=== PATIENT | female | born 1950 | race Caucasian/White ===

== ENCOUNTER 2020-01-02 09:58 | Emergency (ER) | payer MEDICARE, OTHER, SELFPAY ==
[2020-01-02] VITALS (16 sets, daily range): BP systolic 142–223; BP diastolic 63–103; PULSE 45–58; RESP 14–28; TEMP 36.2; O2SAT 94–99; BMI 27.1
--- NOTE | 2020-01-02 10:14 | ED.GENADULT ---
HPI - General Adult General Chief complaint: Extremity Injury, Upper Stated complaint: fell jammed lt shoulder/ hand numb Time Seen by Provider: 01/02/20 10:02 Source: patient Mode of arrival: Ambulatory Limitations: no limitations History of Present Illness HPI narrative: 69-year-old female here for evaluation of left shoulder/upper arm injury. Patient states that she was on a short step stool dusting when she lost her balance and fell landing on her left shoulder. She thinks that she landed on her shoulder and not an outstretched arm. Has been unable to move her shoulder since that time. She states she did not hit her head. No neck pain. Was able to ambulate afterwards. Reports no other injuries from the event. Does state that she is having tingling in her left hand reports no elbow or wrist pain. Related Data Home Medications Medication Instructions Recorded Confirmed omeprazole magnesium [Prilosec OTC] 20 mg PO #0 02/08/17 sertraline 50 mg PO QDAY #0 02/08/17 Previous Rx's Medication Instructions Recorded nitrofurantoin monohyd/m-cryst 100 mg PO BIDCC #10 cap 02/08/17 [Macrobid] hydrocodone-acetaminophen [[place]] 1 tab PO Q4-6H PRN #14 tab 01/02/20 Allergies Allergy/AdvReac Type Severity Reaction Status Date / Time hydromorphone [From Dilaudid] Allergy ITCHING Verified 01/02/20 10:11 Review of Systems Constitutional Constitutional: Denies fever(s), Denies frequent falls and Denies headache(s) ENT Ears, Nose, Mouth, and Throat: Denies headache(s) Cardiovascular Cardiovascular: Denies chest pain and Denies dyspnea Respiratory Respiratory: Denies dyspnea Gastrointestinal Gastrointestinal: Denies abdominal pain Musculoskeletal Comments: Left shoulder pain, Integumentary/Breasts Skin/Breast: Denies lesions and Denies rash Neurologic Neurologic: Denies frequent falls and Denies headache(s) Comments: Tingling left hand Hematologic/Lymphatic Hematologic/Lymphatic: Denies easy bleeding and Denies easy bruising Patient History Medical History Patient denies medical problems (Acute) Social History Smoking Status: Never smoker Smoking Status: Never smoker alcohol intake frequency: 0-2 drinks per day Substance Use Type: marijuana Exam Initial Vital Signs Initial Vital Signs: Vital Signs Temperature 97.1 F L 01/02/20 10:07 Pulse Rate 56 L 01/02/20 10:07 Respiratory Rate 22 01/02/20 10:07 Blood Pressure 223/103 H 01/02/20 10:07 Pulse Oximetry 99 01/02/20 10:07 Const General: cooperative and No comfortable (Uncomfortable) Limitations: mental status not altered HENMT Head: normal to inspection and normocephalic Resp Effort & Inspection: normal respiratory effort Cardio Pulses: radial pulses present on the left Skin Lesions: no lesions Rashes: no rashes Neuro Other: Reports decrease in sensation left hand, does have sensation to the lateral deltoid Extrem Other: Tender to palpation with what feels like a deformity to the proximal left humerus. Patient unable to move shoulder joint secondary to pain. Does not seem to have any discomfort with movement of the elbow or the wrist. Psych Appearance: grossly normal and well kempt Procedures Orthopedic Joint Reduction Joint #1: Time Out Performed: Yes Side: left Joint Reduction Location: shoulder Analgesia: procedural sedation Shoulder Technique Used (if applicable): Milch Post-reduction neuro exam: intact Post-reduction vascular: intact Post Reduction X-Ray Obtained: Yes Post Reduction X-Ray Results: reduced Splint Applied: No Patient Tolerated Procedure: Well and No complications Orthopedic Splinting/Casting Injury #1: Side: left Upper Extremity Injury Location: clavicle Upper Extremity Immobilizer: sling/shoulder immobilizer Post splinting neuro exam: intact Post splinting vascular exam: intact Placed by: Provider Procedural Sedation Consent signed: Yes Time out performed: Yes Indication: fracture/dislocation reduction ASA Class: II Mallampati Airway Classification: Class II Preparation: cardiac rehab nurse applied, pulse oximeter, capnometry used, supplemental O2 applied, suction/airway equipment at bedside and IV secured IV Propofol dose (mg): 60 ED Sedation Level: Minimal Patient Tolerated Procedure: Well and No complications Complications: none Scores GCS [place] coma scale eye opening: Spontaneous [place] coma scale verbal response: Orientated [place] coma scale motor response: Obey commands [place] coma scale total score: 15 Course Orders Ordered: ED Orders 01/02/20 10:13 XR humerus LT 2V Stat XR shoulder LT min 2V Stat 01/02/20 10:48 RT Consult Eval and Treat Now 01/02/20 10:54 XR shoulder LT 1V Stat Sodium Chloride (Normal Saline 0.9%) 1,000 mls @ 125 mls/hr IV CONT MIKE Last Admin: 01/02/20 11:10 Dose: 125 mls/hr Documented by: MAMTA Discontinued Medications Fentanyl (Sublimaze) 50 mcg IV NOW ONE Stop: 01/02/20 10:18 Last Admin: 01/02/20 10:27 Dose: 50 mcg Documented by: SAHRA Fentanyl (Sublimaze) 50 mcg IV NOW ONE Stop: 01/02/20 10:35 Last Admin: 01/02/20 10:39 Dose: 50 mcg Documented by: SAHRA Propofol (Diprivan) 60 mg 1 mg/kg (60 mg) IV NOW ONE Stop: 01/02/20 10:50 Last Admin: 01/02/20 11:10 Dose: 60 mg Documented by: MAMTA Vital Signs Vital signs: Vital Signs - 8 hr 01/02/20 10:07 01/02/20 10:32 01/02/20 10:40 Temperature 97.1 F L Pulse Rate 56 L 52 L Pulse Rate [Left Radial] 58 L Respiratory Rate 22 17 Blood Pressure 223/103 H Blood Pressure [Right Arm] 199/96 H Pulse Oximetry 99 94 01/02/20 10:54 01/02/20 11:08 01/02/20 11:10 Temperature Pulse Rate 55 L 52 L 54 L Pulse Rate [Left Radial] Respiratory Rate 16 20 20 Blood Pressure Blood Pressure [Right Arm] 197/95 H 184/95 H 181/98 H Pulse Oximetry 97 99 01/02/20 11:12 01/02/20 11:15 01/02/20 11:22 Temperature Pulse Rate 54 L 52 L 51 L Pulse Rate [Left Radial] Respiratory Rate 21 18 24 Blood Pressure Blood Pressure [Right Arm] 167/86 H 156/70 H Pulse Oximetry 95 98 96 01/02/20 11:25 01/02/20 11:30 01/02/20 11:37 Temperature Pulse Rate 49 L 48 L 49 L Pulse Rate [Left Radial] Respiratory Rate 28 H 17 20 Blood Pressure Blood Pressure [Right Arm] 156/70 H 159/76 H 142/63 H Pulse Oximetry 97 97 99 01/02/20 11:50 01/02/20 11:51 Temperature Pulse Rate 54 L 45 L Pulse Rate [Left Radial] Respiratory Rate 14 16 Blood Pressure Blood Pressure [Right Arm] 179/79 H Pulse Oximetry Medical Decision Making Lab Data Labs: Point of Care Testing Test Results Not applicable Point of care testing: Point of Care Testing Test Results Not applicable Imaging Data Extremity x-ray #1: Radiologist's Impression: [address] [address] XRay Report Signed Patient: Candy Damon [facility]#: [id number] : 2Acct:[id number] Age/Sex: 69 / FDate of Service: 01/02/20 Loc: ED Accession Number: [id number] Procedure: XR humerus LT 2V Ordering Provider: Felix Buckner D.O. PROCEDURE: XR HUMERUS LT 2V INDICATIONS: Pain after fall possible proximal fracture TECHNIQUE: 2 views of the humerus were acquired. COMPARISON: None. FINDINGS: Bones: There is anterior-inferior dislocation at the glenohumeral joint. No definite fracture is seen.. No suspicious bony lesions. Soft tissues: No suspicious soft tissue calcifications. IMPRESSION: Anterior-inferior glenohumeral dislocation. No definite fracture is identified. Dictated by: Tucker Mcknight M.D. on 01/02/2020 at 10:57 Approved by: Tucker Mcknight M.D. on 01/02/2020 at 10:59 Extremity x-ray #2: Radiologist's Impression: [address] [address] XRay Report Signed Patient: Candy Damon [facility]#: [id number] : 2At:[id number] Age/Sex: 69 / FDate of Service: 01/02/20 Loc: ED Accession Number: [id number] Procedure: XR shoulder LT min 2V Ordering Provider: Felix Buckner D.O. PROCEDURE: XR SHOULDER LT MIN 2V INDICATIONS: deformity TECHNIQUE: 3 views of the shoulder were acquired. COMPARISON: None. FINDINGS: Bones: Anterior-inferior dislocation glenohumeral joint is seen. No definite fracture is identified. Mild acromioclavicular joint osteophytic changes are seen. No suspicious bony lesions. Visualized ribs appear intact. Soft tissues: No suspicious soft tissue calcifications. IMPRESSION: Anterior-inferior dislocation of glenohumeral joint. No definite fracture is seen. Dictated by: Tucker Mcknight M.D. on 01/02/2020 at 10:59 Approved by: Tucker Mcknight M.D. on 01/02/2020 at 11:06 post reduction x-ray: Radiologist's Impression: [address] [address] XRay Report Signed Patient: Candy Damon [facility]#: [id number] : 2Acct:[id number] Age/Sex: 69 / FDate of Service: 01/02/20 Loc: ED Accession Number: [id number] Procedure: XR shoulder LT 1V Ordering Provider: Felix Buckner D.O. PROCEDURE: XR SHOULDER LT 1V INDICATIONS: post reduction TECHNIQUE: One views of the shoulder were acquired. COMPARISON: [facility], CR, XR SHOULDER LT MIN 2V, 01/02/2020, 10:10. FINDINGS: Bones: There is interval reduction of earlier noted glenohumeral joint dislocation with anatomic shoulder alignment. No obvious fracture isn't identified. Mild to moderate acromioclavicular joint and glenohumeral joint osteophytic changes are seen. No suspicious bony lesions. Visualized ribs appear intact. Soft tissues: No suspicious soft tissue calcifications. IMPRESSION: Interval reduction of earlier noted anterior-inferior glenohumeral joint dislocation with anatomic shoulder alignment. Shoulder joint osteoarthritis. No definite fracture is seen. Dictated by: Tucker Mcknight M.D. on 01/02/2020 at 11:22 Approved by: Tucker Mcknight M.D. on 01/02/2020 at 11:23 [facility] Narrative Medical decision making narrative: Patient tolerated the sedation well without any hypoxia. She recovered without incident. The shoulder reduced without incident. There were no fractures on the post reduction x-ray. She was placed in a sling. She was neurovascularly intact afterwards. We did discuss treatment. Discussed return precautions and follow-up instructions. She expressed understanding and agreement. Discharge Plan Departure Patient Disposition: Home Clinical Impression: Shoulder dislocation Qualifiers: Encounter type: initial encounter Laterality: left Qualified Code(s): S43.005A - Unspecified dislocation of left shoulder joint, initial encounter Instructions: How to Use a Sling, DI for Shoulder Dislocation Activity Restrictions/Additional Instructions: Take the medications as needed and as directed. You can take the sling off to shower like we discussed. I recommend that you contact your primary provider for follow-up as physical therapy in this situation is an important aspect of recovery. Return to the emergency department for any new or worsening symptoms Prescriptions: New hydrocodone-acetaminophen [[place]] 5-325 mg tablet 1 tab PO Q4-6H PRN (Reason: pain) Qty: 14 RF: 0 No Action sertraline 50 MG tablet 50 mg PO QDAY Qty: 0 RF: 0 omeprazole magnesium [Prilosec OTC] 20 MG tablet,delayed release (DR/EC) 20 mg PO Qty: 0 RF: 0 nitrofurantoin monohyd/m-cryst [Macrobid] 100 MG capsule 100 mg PO BIDCC Qty: 10 RF: 0
[2020-01-02] MEDS: fentaNYL 100 MCG/2 ML INJ 50 MCG IV ×2 (10:27→10:39)
--- NOTE | 2020-01-02 10:33 | PC.NURSE ---
pt has pain in left shoulder but describes a numb feeling from the elbow to hand.
--- NOTE | 2020-01-02 10:33 | PC.NURSE ---
pt states after medication the pain level is still 10/10
--- NOTE | 2020-01-02 10:54 | DI.RAD.S_ITS ---
PROCEDURE: XR SHOULDER LT 1V INDICATIONS: post reduction TECHNIQUE: One views of the shoulder were acquired. COMPARISON: [facility], CR, XR SHOULDER LT MIN 2V, 01/02/2020, 10:10. FINDINGS: Bones: There is interval reduction of earlier noted glenohumeral joint dislocation with anatomic shoulder alignment. No obvious fracture isn't identified. Mild to moderate acromioclavicular joint and glenohumeral joint osteophytic changes are seen. No suspicious bony lesions. Visualized ribs appear intact. Soft tissues: No suspicious soft tissue calcifications. IMPRESSION: Interval reduction of earlier noted anterior-inferior glenohumeral joint dislocation with anatomic shoulder alignment. Shoulder joint osteoarthritis. No definite fracture is seen. Dictated by: Tucker Mcknight M.D. on 01/02/2020 at 11:22 Approved by: Tucker Mcknight M.D. on 01/02/2020 at 11:23
--- NOTE | 2020-01-02 10:55 | PC.NURSE ---
pt states, up on the 2 foot ladder dusting, fell an hour ago, denies head injury, loc, denies neck of back pain, now with left shoulder pain, dislocation. +distal cms intact,
[2020-01-02] MEDS: propofoL 200 MG/20 ML VIAL 60 MG IV (11:10)
[2020-01-02] MEDS: SODIUM CHLORIDE 0.9% 1,000 ML 125 ML IV (11:10)
--- NOTE | 2020-01-02 11:12 | PC.NURSE ---
dr sullivan in progress for closed left shoulder dislocation, successfull, +distal cms
--- NOTE | 2020-01-02 11:14 | PC.NURSE ---
drowsy, but responsive
--- NOTE | 2020-01-02 11:16 | PC.NURSE ---
post closed reduction xray.
--- NOTE | 2020-01-02 11:24 | PC.NURSE ---
ice pack applied left shoulder, pt awake, talkative and appropriate.
== END 2020-01-02 12:25 | disposition home or self-care (01) ==
PROVIDERS: Emergency Provider Emergency Medicine
DX: S43.005A Unspecified dislocation of left shoulder joint, initial encounter (principal); W19.XXXA Unspecified fall, initial encounter
CPT/HCPCS: 23650; 73020; 73030; 73060; 94770; 96361; 96374; 96376; 99285; 99291; J2704; J3010

== ENCOUNTER → 2023-09-13 07:39 | Outpatient (CLI) | payer MEDICARE, OTHER, SELFPAY ==
--- NOTE | 2023-09-13 07:42 | DI.MRI.S_ITS ---
PROCEDURE: MR CERVICAL SPINE WO CON INDICATIONS: CERVICAL SPINE STENOSIS TECHNIQUE: Noncontrast sagittal T1 spin echo and T2 fast spin echo, sagittal STIR, foraminal oblique sagittal T2 fast spin echo, and axial gradient echo or T2 fast spin echo through the cervical spine. COMPARISON: None. FINDINGS: Image quality: Excellent. Alignment and Curvature: There is trace anterolisthesis of C3 on C4,, C5 on C6, C7 on T1, T1 on T2. trace retrolisthesis of C4 on C5. Bone Marrow: Marrow demonstrates normal overall signal. Spinal Cord: Visualized spinal cord has normal size and signal. No cerebellar tonsillar herniation. Paraspinous Soft Tissues: No paravertebral masses. Prevertebral soft tissues are normal in thickness. Discs: Multilevel moderate to severe disc desiccation. C2-C3: Minimal disc bulge without spinal stenosis or foraminal narrowing. C3-C4: Mild disc bulge with mild spinal stenosis. [id number] left foraminal narrowing with uncovertebral hypertrophy. C4-C5: Mild disc bulge with increased T2 signal posterior suggestive annular fissure. Moderate to severe spinal stenosis. Moderate to severe left and moderate right foraminal narrowing with uncovertebral hypertrophy. C5-C6: Mild disc bulge with moderate spinal stenosis. Minimal to mild bilateral foraminal narrowing with uncovertebral hypertrophy. C6-C7: Mild disc bulge without spinal stenosis. Mild bilateral foraminal narrowing with uncovertebral hypertrophy. C7-T1: Mild disc bulge without spinal stenosis. No foraminal narrowing. IMPRESSION: Multilevel disc bulges. Multilevel spinal stenosis most severe at C4-5 secondary to disc bulge. Multilevel foraminal narrowing most severe at C4-5 secondary to uncovertebral arthropathy. Dictated by: Esmer Villarreal M.D. on 09/13/2023 at 11:05 Approved by: Esmer Villarreal M.D. on 09/13/2023 at 11:24
== END ==
LOC: MRI 07:41
PROVIDERS: Referring Provider Physical Medicine & Rehabilitation Pain Medicine; Visit Provider Physical Medicine & Rehabilitation Pain Medicine
DX: M48.02 Spinal stenosis, cervical region (principal); M47.812 Spondylosis without myelopathy or radiculopathy, cervical region; M50.31 Other cervical disc degeneration, high cervical region
CPT/HCPCS: 72141

== ENCOUNTER → 2024-07-10 16:03 | Outpatient (CLI) | payer MEDICARE, OTHER, SELFPAY | LOC: RESP 16:04 | PROVIDERS: Referring Provider Internal Medicine; Visit Provider Internal Medicine | DX: R06.02 Shortness of breath (principal); Z87.891 Personal history of nicotine dependence; Z87.09 Personal history of other diseases of the respiratory system | CPT/HCPCS: 94060; 94726; 94729 ==